=== PATIENT | male | born 1955 | race Caucasian/White ===

== ENCOUNTER 2017-05-29 08:32 | Emergency (ER) | payer OTHER ==
[~2017-05-29] VITALS: Ht 182.9 cm; Wt 84.1 kg
[2017-05-29 08:36] VITALS: TEMP 97.6
[2017-05-29] MEDS ORDERED: ASPIRIN 81M81 MG/TA2 PO (09:24)
[2017-05-29] MEDS ORDERED: GLUCOPHAGE500 MG/TAB PO (09:24)
[2017-05-29 09:25] LABS: BASO % 0.5 % (0.0-2.0); EOS % 0.5 % (0-4.0); HEMOGLOBIN 16.3 g/dl (13.5-18.0); LYMPH # 1.2 (1.2-3.4); LYMPH % 15.2 % (20.0-51.0); MEAN CELL VOLUME 88 fl (80.0-100.0); MEAN CORPUSCULAR HEMOGLOBIN 30 pg (27.0-31.0); MEAN CORPUSCULAR HGB CONC 34 g/dl (33.0-37.0); MEAN PLATELET VOLUME 11.4 fl (7.4-10.4); MONO # 0.6 (0.1-0.6); MONO % 7.5 % (1.7-9.3); PLATELET COUNT 166 K/mm3 (130-400); RED BLOOD COUNT 5.44 M/mm3 (4.20-5.60); REDCELL DISTRIBUTION WIDTH-CV 13.3 % (11.5-14.5); WHITE BLOOD COUNT 7.8 K/mm3 (4.8-10.8)
[2017-05-29] MEDS ORDERED: CLARITIN 1010 MG/TAB PO (09:25)
[2017-05-29 09:37] LABS: ADJUSTED CALCIUM 9.2 mg/dL (8.4-10.2); ALANINE AMINOTRANSFERASE 35 U/L (21-72); ALBUMIN 4.7 gm/dL (3.5-5.0); ALKALINE PHOSPHATASE 74 U/L (50-136); ANION GAP 15 mmol/L (7-16); BILIRUBIN,TOTAL 1.1 mg/dL (0.0-1.0); BLOOD UREA NITROGEN 28 mg/dL (9-20); CALCIUM 9.8 mg/dL (8.4-10.2); CARBON DIOXIDE 20 mmol/L (22-30); CHLORIDE 104 mmol/L (98-107); CREATININE, serum 1.99 mg/dL (0.66-1.25); GLUCOSE 153 mg/dL (74-106); LIPASE 127 U/L (23-300); POTASSIUM 4.3 mmol/L (3.4-5.0); SODIUM 139 mmol/L (137-145)
[2017-05-29 09:38] LABS: C-REACTIVE PROTEIN < 0.5 mg/dL (0.0-0.9)
[2017-05-29 11:31] LABS: PH 5 (5-8); SQUAMOUS EPITHELIAL None Seen /hpf; URINE APPEARANCE Clear; URINE BACTERIA None Seen /hpf; URINE BILIRUBIN Negative (NEGATIVE); URINE BLOOD 3+ (NEGATIVE); URINE COLOR Yellow; URINE GLUCOSE Negative (NEGATIVE); URINE KETONE Negative (NEGATIVE); URINE RBC 20-50 /hpf; URINE UROBILINOGEN Negative (NEGATIVE); URINE WBC 0-2 /hpf
[2017-05-29] MEDS ORDERED: NORCO 325 MG-51 TAB PO (11:48)
[2017-05-29 12:03] VITALS: BP 143/94; PULSE 73
== END 2017-05-29 12:02 | disposition home or self-care (01) ==
LOC: COL.ER 08:32
PROVIDERS: Emergency Medicine
DX: N20.1 Calculus of ureter (principal); N19 Unspecified kidney failure; N23 Unspecified renal colic; Q60.0 Renal agenesis, unilateral; Z79.82 Long term (current) use of aspirin; Z87.19 Personal history of other diseases of the digestive system; Z90.49 Acquired absence of other specified parts of digestive tract
CPT/HCPCS: J1170; J2405; J7030

== ENCOUNTER → 2017-07-22 | Outpatient (CLI) | payer OTHER ==
[~2017-07-22] MED LIST: ASPIRIN 81M81 MG/TA2 PO; CLARITIN 1010 MG/TAB PO; GLUCOPHAGE500 MG/TAB PO; NORCO 325 MG-51 TAB PO
== END ==
LOC: SUN.DIA 10:45
DX: E11.9 Type 2 diabetes mellitus without complications (principal); I10 Essential (primary) hypertension; Z68.25 Body mass index [BMI] 25.0-25.9, adult; Z71.3 Dietary counseling and surveillance; Z87.891 Personal history of nicotine dependence
CPT/HCPCS: G0108

== ENCOUNTER → 2017-07-23 | Outpatient (CLI) | payer OTHER | LOC: SUN.DIA 15:22 | DX: E11.9 Type 2 diabetes mellitus without complications (principal); I10 Essential (primary) hypertension; Z68.25 Body mass index [BMI] 25.0-25.9, adult; Z71.3 Dietary counseling and surveillance; Z87.891 Personal history of nicotine dependence ==

== ENCOUNTER → 2017-08-07 | Outpatient (CLI) | payer OTHER | LOC: SUN.DIA 12:47 | DX: E11.9 Type 2 diabetes mellitus without complications (principal); I10 Essential (primary) hypertension; Z68.24 Body mass index [BMI] 24.0-24.9, adult; Z71.3 Dietary counseling and surveillance | CPT/HCPCS: G0108 ==

== ENCOUNTER 2017-10-24 06:06 | Observation (INO) | payer OTHER ==
[2017-10-24] VITALS (12 sets, daily range): BP systolic 155–194; BP diastolic 75–106; PULSE 80–120; TEMP 98–98.9
[~2017-10-24] VITALS: Ht 182.9 cm; Wt 82.3 kg
[2017-10-24] MEDS ORDERED: COZAAR 25MG25 MG/TAB PO (06:33)
[2017-10-25] VITALS: BP 164/86; PULSE 82
[2017-10-25 01:57] VITALS: BP 164/86; PULSE 82; TEMP 98.5
[2017-10-25 04:00] VITALS: BP 178/89; PULSE 78
[2017-10-25 06:20] VITALS: BP 146/86; PULSE 82; TEMP 98.8
[2017-10-25 08:30] VITALS: BP 145/74; PULSE 77; TEMP 98
[2017-10-25 09:15] VITALS: BP 153/78; PULSE 76; TEMP 98.2
== END 2017-10-25 13:59 | disposition home or self-care (01) ==
LOC: SURG 06:06
DX: N20.1 Calculus of ureter (principal); E11.9 Type 2 diabetes mellitus without complications; I10 Essential (primary) hypertension; Z90.49 Acquired absence of other specified parts of digestive tract; Z79.84 Long term (current) use of oral hypoglycemic drugs; Z87.442 Personal history of urinary calculi
CPT/HCPCS: C1769; G0378; G0379; J0360; J1100; J1940; J2270; J2405; J2704; J3010; Q9967

== ENCOUNTER 2022-05-15 11:45 | Day surgery (SDC) | payer MEDICARE, BC ==
[~2022-05-15] VITALS: Ht 182.9 cm; Wt 83.9 kg
[~2022-05-15 11:45] MED LIST changes: +COZAAR 25MG25 MG/TAB PO; +COZAAR100 MG PO; +FLONASE SENSIM9.9 ML IH; +LIPITOR20 MG PO; +MULTI VITAMINS1 TAB; +ZYRTEC 10MG10 MG PO
[2022-05-15 12:53] VITALS: BP 165/106; PULSE 74; TEMP 98.1
[2022-05-15] MEDS ORDERED: EYE MULTIVITAM1 EAC1 PO (13:11)
--- NOTE | 2022-05-15 13:28 | NUR ---
Initial visit; Patient thanked [employer]worker Apprentice for offering prayer and God's blessings for a successful 'Procedure' and rapid and thorough healing.
[2022-05-15] MEDS ORDERED: NORCO 325 MG-51 TAB PO (17:12)
[2022-05-15 17:55] VITALS: BP 150/80; PULSE 61
--- NOTE | 2022-05-15 17:55 | NUR ---
PT BROUGHT TO SURGICAL FLOOR BY BED. ASSESSMENT AND VS WNL. NO COMPLAINTS OF N/V. PT EATING JELLO AND DRINKING WATER WITH NO ISSUES. MINIMAL PAIN IS REPORTED. CALL LIGHT WITHIN REACH.
[2022-05-15 18:15] VITALS: BP 148/71; PULSE 61
[2022-05-15 18:25] VITALS: BP 141/70; PULSE 56
[2022-05-15 18:40] VITALS: BP 158/84; PULSE 65
[2022-05-15 19:10] VITALS: BP 160/86; PULSE 65; TEMP 98.7
--- NOTE | 2022-05-15 20:15 | NUR ---
Pt. sitting up at bedside. Pt. is A&O3, assessment complete. INT to rt. forearm patent. Pt. denies pain at this time. Incision dressing cdi. Pt. denies further needs.
--- NOTE | 2022-05-15 20:25 | NUR ---
Pt. has met discharge criteria. Pt. given discharge paperwork. Pt. voices understanding of instructions. Reviewed home meds. Pt. also reviewed on new script. Pt. voices understanding. Pt. denies further needs. INT discontinued from rt. forearm. Pt. dressed and escorted out by this nurse.
== END 2022-05-15 20:25 | disposition home or self-care (01) ==
LOC: SDCO 11:45 → SURG 19:00 → SDCO 20:25
DX: K40.20 Bilateral inguinal hernia, without obstruction or gangrene, not specified as recurrent (principal)
CPT/HCPCS: OP; C1781; J1100; J1885; J1956; J2405; J2704; J3010; J7120

== ENCOUNTER → 2024-08-20 | Outpatient (CLI) | payer MEDICARE, BC ==
[~2024-08-20] MED LIST changes: +EYE MULTIVITAM1 EAC1 PO
== END ==
LOC: COL.RAD 08:29
DX: R59.0 Localized enlarged lymph nodes (principal)

== ENCOUNTER → 2024-08-28 | Outpatient (CLI) | payer MEDICARE, BC ==
[~2024-08-28] VITALS: Ht 182.9 cm; Wt 86.5 kg
[~2024-08-28] MED LIST changes: +COMPLETE SENIOR1 TA1 PO; +GLUCOPHAGE XR500 M1 PO; +QUERCETIN500 M1 PO; +THE MEDICINE S200 M2 PO
[2024-08-28 13:28] VITALS: BP 177/96; PULSE 84; TEMP 98
[2024-08-28 14:20] VITALS: BP 196/97; PULSE 80
== END ==
LOC: COL.RAD 13:15
DX: R22.1 Localized swelling, mass and lump, neck (principal)